=== PATIENT | female | born 1990 | race Asian ===

== ENCOUNTER → 2021-11-24 | Outpatient (CLI) | payer OTHER ==
--- NOTE | 2021-11-24 15:43 | Diagnostic Imaging Report ---
INDICATION: anatomy survey. TECHNIQUE: Multiple Real-time grayscale images were obtained over the gravid uterus. COMPARISON: None FINDINGS: There is a single live intrauterine in the cephalic position. The cervix measures 4.5 cm. The placenta is posterior in location, and there is no evidence of previa or placental abruption. heart rate was not recorded in the examination. The amount of amniotic fluid appears visually appropriate. anatomy survey was performed and the following structures are visualized and normal: spine, cerebral ventricles, profile, bilateral upper and lower extremities, umbilical cord insertion, stomach, kidneys, four-chamber heart, right ventricular outflow tract, left ventricular outflow tract, diaphragm, aorta, and cerebellum/cisterna magna. Due to advanced gestational age, the maternal adnexa are suboptimally evaluated. Biometrical measurements are as follows: Biparietal 4.68 cm, age 20 weeks 2 days. Head circumference 17.82 cm, age 20 weeks 2 days. Abdominal circumference 14.19 cm, age 19 weeks 4 days. Femur length 3.19 cm, age 20 weeks 0 days. Sonographic estimate age: 20 weeks 1 days. Sonographic estimated date of delivery: 04/12/22. Estimated Weight: 313 gm (+/- 46 gm). LMP percentile: 27%. number: 1 of 1. IMPRESSION: 1. Single live intrauterine with normal anatomy survey. 2. heart rate was not assessed during this examination. Dictated by: Dictated on workstation # [id number]
== END ==
LOC: RAD 13:00
PROVIDERS: ATTEND Obstetrics & Gynecology
DX: Z34.92 Encounter for supervision of normal pregnancy, unspecified, second trimester (principal); Z3A.20 20 weeks gestation of pregnancy
CPT/HCPCS: 76805

== ENCOUNTER 2022-03-24 05:28 | Outpatient (CLI) | payer OTHER ==
[~2022-03-24] VITALS: Ht 160 cm; Wt 74.5 kg
[2022-03-24] MEDS ORDERED: PREN1TAB19 PO (14:05)
[2022-03-31] MEDS ORDERED: ACHD5005 PO (07:29)
[2022-03-31] MEDS ORDERED: DOCU100C37 PO (07:29)
[2022-03-31] MEDS ORDERED: IBUP-844 PO (07:29)
== END 2022-03-24 14:01 | disposition home or self-care (01) ==
LOC: PREOP 05:28
PROVIDERS: ATTEND Obstetrics & Gynecology
DX: Z01.818 Encounter for other preprocedural examination (principal)

== ENCOUNTER 2022-03-31 05:49 | Inpatient (IN) | payer OTHER ==
[~2022-03-31] VITALS: Ht 159 cm; Wt 74.4 kg
[2022-03-31] VITALS (9 sets, daily range): BP systolic 99–125; BP diastolic 56–94
[~2022-03-31 05:49] MED LIST: PREN1TAB19 PO
[2022-03-31] MEDS: LACTATED RINGERS 1,000 ML IV PRN ×2 (06:45→07:23)
[2022-03-31] MEDS ORDERED: ceFAZolin 2 GM IV Premixed 50 ML IV ONE (06:45)
[2022-03-31] MEDS ORDERED: FAMOTIDINE 20MG/2ML IV (PEPCID) IV ONE (07:00)
[2022-03-31] MEDS ORDERED: CITRIC ACID/SOB CIT (BICITRA) 30 ML UDC PO ONE (07:00)
[2022-03-31] MEDS ORDERED: LACTATED RINGERS 1,000 ML IV PRN (07:00)
[2022-03-31] MEDS ORDERED: OXYTOCIN PRE-MIX DRIP 1,000 ML IV ONE (07:00)
[2022-03-31] MEDS ORDERED: ROPIVACAINE 5MG/ML 30ML VIAL ONE (07:00)
[2022-03-31] MEDS ORDERED: fentaNYL INJ 100 MCG/2 ML AMP ONE (07:00)
[2022-03-31] MEDS ORDERED: METOCLOPRAMIDE INJ 10 MG/2 ML (REGLAN) IV ONE (07:00)
[2022-03-31 07:08] LABS: BASOPHILS % (AUTO) 0 % (0-10); EOSINOPHILS # (AUTO) 0.1 10^3/uL (0.0-0.3); EOSINOPHILS % (AUTO) 1 % (0-10); HEMATOCRIT 33 % (35-52); HEMOGLOBIN 11.2 g/dL (11.5-16.0); LYMPHOCYTES # (AUTO) 1.5 10^3/uL (1.0-4.0); LYMPHOCYTES % (AUTO) 23 % (12-44); MEAN CORPUSCULAR HEMOGLOBIN 29 pg (25-34); MEAN CORPUSCULAR HGB CONC 34 g/dL (32-36); MEAN CORPUSCULAR VOLUME 85 fL (80-99); MEAN PLATELET VOLUME 11.3 fL (9.0-12.2); MONOCYTES # (AUTO) 0.6 10^3/uL (0.0-1.0); MONOCYTES % (AUTO) 9 % (0-12); NEUTROPHILS # (AUTO) 4.5 10^3/uL (1.8-7.8); NEUTROPHILS % (AUTO) 66 % (42-75); PLATELET COUNT 224 10^3/uL (130-400); WHITE BLOOD COUNT 6.8 10^3/uL (4.3-11.0)
--- NOTE | 2022-03-31 07:25 | History & Physical-OB ---
OB - Chief Complaint & HPI Date/Time Date of Admission: Date of Admission: Mar 31, 2022 at 05:49 Date seen by a Provider: Mar 31, 2022 Time Seen by a Provider: 07:00 Chief Complaint/History OB-Reason for Admission/Chief: Section Hx : 4 Hx Para: 1 Expected Date of Delivery: Apr 12, 2022 Gestational Age in Weeks: 38 Gestational Age in Days: 2 Indication for : desires repeat Admission Nurse Assessment Rev: Yes History of Labs B pos Antibody neg RI RPR NR HBsAg NR HIV NR GC neg GBS neg Allergies and Home Medications Allergies Coded Allergies: egg (Verified Allergy, Unknown, itching, 03/24/22) Patient Home Medication List Home Medication List Reviewed: Yes Vit/Iron Fumarate/FA ( Vitamins Tablet) 28 Mg Iron-800 Mcg Tablet, 1 EACH PO UD, (Reported) Entered as Reported by: TYLER WAKEFIELD on 03/24/22 1405 OB - History Hx of Present Care: Yes Ultrasounds: Normal mid trimester US Obstetrical Complications: Gestational Diabetes Medical Complications: None Other Concerns: Previous effected by child with hydrocephalus Patient Past Medical History n/a Social History/Family History 2nd Hand Smoke Exposure: No Immunizations First/Initial COVID19 Vaccine: 2020 Second COVID19 Vaccination: 2020 OB - Admission Exam Physical Exam HEENT: NCAT Heart: Rhythm Normal Lungs: Clear Abdomen: Gravid Extremities: Normal Reflexes: Normal Heart Rate: 130's Accelerations: Accelerations Present Decelerations: No Decelerations Short Term Variability: Present Ecological Risk Assessor Variability: Average (6-25) Contractions on Admission: >10 Minutes Apart Intensity: Mild Labs Laboratory Tests Test 03/31/22 06:30 Range/Units White Blood Count 6.8 4.3-11.0 10^3/uL Red Blood Count 3.89 3.80-5.11 10^6/uL Hemoglobin 11.2 L 11.5-16.0 g/dL Hematocrit 33 L 35-52 % Mean Corpuscular Volume 85 80-99 fL Mean Corpuscular Hemoglobin 29 25-34 pg Mean Corpuscular Hemoglobin Concent 34 32-36 g/dL Red Cell Distribution Width 16.4 H 10.0-14.5 % Platelet Count 224 130-400 10^3/uL Mean Platelet Volume 11.3 9.0-12.2 fL Immature Granulocyte % (Auto) 1 % Neutrophils (%) (Auto) 66 42-75 % Lymphocytes (%) (Auto) 23 12-44 % Monocytes (%) (Auto) 9 0-12 % Eosinophils (%) (Auto) 1 0-10 % Basophils (%) (Auto) 0 0-10 % Neutrophils # (Auto) 4.5 1.8-7.8 10^3/uL Lymphocytes # (Auto) 1.5 1.0-4.0 10^3/uL Monocytes # (Auto) 0.6 0.0-1.0 10^3/uL Eosinophils # (Auto) 0.1 0.0-0.3 10^3/uL Basophils # (Auto) 0.0 0.0-0.1 10^3/uL Immature Granulocyte # (Auto) 0.0 0.0-0.1 10^3/uL Glucose Level 76 70-105 MG/DL OB - Assessment/Plan/Diagnosis Assessment Assessment: section Admission Dx 31 yo @ 38.2 weeks Gestational DM Previous Previous effected by hydrocephalus GBS neg Admission Status: Inpatient Order (span 2 midnights) Reason for Inpatient Admission: Repeat at term Plan Plan: Section JAYLAN ALVAREZ DO Mar 31, 2022 07:25
--- NOTE | 2022-03-31 07:28 | Discharge Inst-Women's Service ---
Discharge Inst-Women's Serv Depart Medication/Instructions New, Converted or Re-Newed RX: Transmitted to Pharmacy Final Diagnosis POD 2 RLTCS Problems Reviewed?: Yes Consults/Follow Up Additional Follow Up: Yes Orders/Referrals Dr. Fofana/Grazyna in 7-10 days and in 6 weeks Activity Activity: Activity as Tolerated Driving Instructions: No Driving for 1 Week NO SMOKING: NO SMOKING Nothing Inside Vagina: No Douching, No Fifty-Six, No Tampons Diet Discharge Diet: No Restrictions Symptoms to Report to : Bleeding Excessive, Pain Increased, Fever Over 101 Degrees F, Vaginal Bleeding Increase, Questions/Concerns For Any Problems or Questions: Contact Your Physician Skin/Wound Care Infection Signs and Symptoms: Increased Redness, Foul Odor of Wound, Increased Drainage, Skin Itchy or Has a Rash, Increased Swelling, Temperature Above 101 F Operative Area Clean and Dry: Keep Incision Clean/Dry Stitches/Monica/Dermabond: Dermabond, Care of Stitches Bathing Instructions: JAYLAN Dyson DO Mar 31, 2022 07:28
[2022-03-31] MEDS ORDERED: IBUP-844 PO (07:29)
[2022-03-31] MEDS ORDERED: ACHD5005 PO (07:29)
[2022-03-31] MEDS ORDERED: DOCU100C37 PO (07:29)
[2022-03-31] MEDS ORDERED: MEASLES,MUMPS,RUBELLA 1 EA INJ SC SCH (07:30)
[2022-03-31] MEDS ORDERED: NALOXONE 0.4 MG/ML 1 ML (NARCAN) VIAL IV PRN (07:30)
[2022-03-31] MEDS ORDERED: ONDANSETRON 4 MG/2 ML (SDV) Z0FRAN IVP PRN ×2 (07:30)
[2022-03-31] MEDS ORDERED: HYDROmorphone 2 MG/ML VIAL (DILAUDID) IV ONE (07:30)
[2022-03-31] MEDS ORDERED: TETANUS,DIPTH,PERTUSS P/F (BOOSTRIX) 0.5 ML VIAL IM SCH (07:30)
[2022-03-31] MEDS ORDERED: PHENYLEPHRINE 100 MCG/ML 10 ML (ANESTHESIA) SYR ONE (07:32)
[2022-03-31] MEDS: OXYTOCIN PRE-MIX DRIP 500 ML IV SCH ×2 (08:25→10:49)
[2022-03-31] MEDS: KETOROLAC 30 MG/ML VIAL IV SCH ×3 (10:09→21:18)
[2022-03-31] MEDS: DOCUSATE SODIUM 100 MG (COLACE) CAP PO SCH ×2 (10:10→21:17)
--- NOTE | 2022-03-31 13:05 | OPERATIVE REPORT ---
DATE OF SERVICE: PREOPERATIVE DIAGNOSES: 1. A 31-year-old G4, P1 at 38 weeks and 2 days gestation. 2. Previous section. 3. Gestational diabetes. POSTOPERATIVE DIAGNOSES: 1. A 31-year-old G4, P1 at 38 weeks and 2 days gestation. 2. Previous section. 3. Gestational diabetes. PROCEDURE: Repeat low transverse section. SURGEON: Alberto Alvarez DO ANESTHESIA: Spinal. ESTIMATED BLOOD LOSS: 700 mL. URINE OUTPUT: 200 mL clear at the end of procedure. FLUIDS: 1000 mL lactated Ringer's solution. FINDINGS: A live female infant weighing 6 pounds 3 ounces, Apgars of 8 and 9. Grossly normal appearing uterus, bilateral fallopian tubes and ovaries. SPECIMEN SENT: Placenta. INDICATIONS FOR PROCEDURE: This 31-year-old female is a patient who sought care in my office. Her previous was complicated by significant hydrocephalus with permanent disability of that child. She underwent for that and was opting to proceed with repeat with this . This had only been complicated by gestational diabetes, which was diagnosed at the start of the third trimester. Otherwise, it been uncomplicated. Ultrasound had been unremarkable. She did well with controlling her diabetes with diet alone and made to 38 weeks where we scheduled her for repeat delivery. Risks of the procedure had been discussed with the patient and her in detail in the office. After all their questions were answered, consent was obtained, the patient was taken to the operating room. OPERATIVE REPORT IN DETAIL: Once in the operating room, anesthesia was found to be adequate. She was placed in supine position with leftward tilt, prepped and draped in normal sterile fashion. Timeout was performed and anesthesia was tested. I then make a Pfannenstiel skin incision through the previously existing scar using knife and carried down to underlying fascia using Bovie cautery. The fascial incision extended laterally using Bovie cautery. Superior aspect of fascial incision was then grasped with Stephen clamps, tented up and dissected off the underlying rectus muscles. The inferior aspect of the fascial incision was then grasped with Stephen clamps, tented up and dissected off the underlying rectus muscles. Rectus muscles were dissected down the midline using sharp dissection, which exposed the peritoneum, which I entered bluntly and extended using blunt traction. Andrei ring retractor was placed in the peritoneal incision, which offers excellent lateral sidewall retraction. I identified the lower uterine segment, which was found to be thinned out. I make a low transverse incision to the vesicouterine peritoneum and bluntly dissected off the lower uterine segment, creating a bladder flap. I then proceeded with myotomy until membranes were visualized, at which point I extended the uterine incision laterally and superiorly using bandage scissors. Amniotomy was performed in the process of doing this, clear fluid was noted. was found in vertex presentation. With gentle fundal pressure, the infant's head was elevated and delivered through the incision where the nares and oropharynx were bulb suctioned. Anterior and posterior shoulders were delivered after nuchal cord was reduced x1. The remainder of the infant was then brought to the operative field where cord was duly clamped and cut and infant was handed off to waiting nurses in attendance. Cord blood was collected, 3-vessel cord with intact placenta was delivered spontaneously thereafter. IV Pitocin was initiated to facilitate uterine contraction. Uterine fundus confirmed by manual massage. The uterus was then exteriorized and cleared of all endometrial clots and debris. I then proceeded with closing the uterine incision using 0 Vicryl suture in running locked fashion. Second layer of imbricating 0 Monocryl was placed. Excellent hemostasis was noted after doing this. I then placed the uterus back in the pelvis and copiously irrigated the pelvis using normal saline. Once again, there was no active bleeding noted from any of my dissection planes. I placed Interceed antiadhesive over my low transverse incision. I removed the Andrei ring retractor and then proceeded with closing the peritoneum using 3-0 Vicryl suture in running fashion. The rectus muscle reapproximated using 3-0 Vicryl suture in interrupted fashion. The fascia was reapproximated using 0 Vicryl suture in running fashion and the skin reapproximated using 4-0 Monocryl in a running subcuticular. Dermabond was applied to incision and sterile dressings with adhesive white tape. The patient tolerated the procedure well and sent to recovery area in stable condition. Lap and sponge counts were correct at the end of the procedure. Instrument counts correct as well. Two grams of Ancef given preoperatively for infection prophylaxis. Job ID: [id number] DocumentID: [id number] Dictated Date: 03/31/2022 08:11:26 Skull Splitter Date: 03/31/2022 13:03:44 Dictated By: ALBERTO ALVAREZ DO
[2022-03-31] MEDS: HYDROcodone/APAP 5 MG/325 MG (LORTAB) TAB PO PRN (14:19)
[2022-03-31] MEDS: CATHETER FLUSH 10 ML SYR IV SCH (16:01)
[2022-04-01] VITALS: BP 113/59
[2022-04-01 05:00] VITALS: BP 116/55
[2022-04-01] MEDS: KETOROLAC 30 MG/ML VIAL IV SCH (05:09)
[2022-04-01] MEDS: CATHETER FLUSH 10 ML SYR IV SCH ×2 (05:09→20:08)
[2022-04-01 05:52] LABS: BASOPHILS % (AUTO) 1 % (0-10); EOSINOPHILS # (AUTO) 0.1 10^3/uL (0.0-0.3); EOSINOPHILS % (AUTO) 1 % (0-10); HEMATOCRIT 30 % (35-52); HEMOGLOBIN 10.1 g/dL (11.5-16.0); LYMPHOCYTES # (AUTO) 1.1 10^3/uL (1.0-4.0); LYMPHOCYTES % (AUTO) 15 % (12-44); MEAN CORPUSCULAR HEMOGLOBIN 29 pg (25-34); MEAN CORPUSCULAR HGB CONC 34 g/dL (32-36); MEAN CORPUSCULAR VOLUME 87 fL (80-99); MEAN PLATELET VOLUME 10.7 fL (9.0-12.2); MONOCYTES # (AUTO) 0.7 10^3/uL (0.0-1.0); MONOCYTES % (AUTO) 9 % (0-12); NEUTROPHILS # (AUTO) 5.3 10^3/uL (1.8-7.8); NEUTROPHILS % (AUTO) 74 % (42-75); PLATELET COUNT 185 10^3/uL (130-400); WHITE BLOOD COUNT 7.2 10^3/uL (4.3-11.0)
--- NOTE | 2022-04-01 08:46 | Postpartum Progress Note ---
Note Note Day # 1 Subjective: Patient is without complaints. Ambulating, voiding. Tolerating a regular diet without nausea or vomiting. Normal lochia. Pain is well controlled with oral pain medications. Objective: Physical Exam: General - Alert and oriented, no apparent distress Abdomen - Soft, appropriately tender to palpation, non-distended, fundus firm at umbilicus Extremities - no edema, negative Sherlyn's bilaterally Incision- c/d/i Assessment: POD 1 RLTCS Acute blood loss anemia Plan: Routine care. Encourage breast feeding. Encourage ambulation. Ferrous sulfate supplementation. Plan for discharge tomorrow Vitals - Labs Vital Signs - I&O Vital Signs Date Time Temp Pulse Resp B/P (MAP) Pulse Ox O2 Delivery O2 Flow Rate FiO2 04/01/22 05:00 36.2 70 18 116/55 (75) 96 Room Air 04/01/22 00:00 36.2 71 18 113/59 (77) 98 Room Air 03/31/22 20:00 36.6 69 18 99/60 (73) 99 Room Air 03/31/22 16:02 36.3 72 18 103/61 (75) 96 Room Air 03/31/22 12:15 36.1 73 18 115/59 (77) 98 Room Air 03/31/22 10:00 36.5 78 16 112/69 (83) 100 Room Air 03/31/22 09:00 36.1 16 105/81 (89) 98 Room Air 03/31/22 09:00 Room Air 03/31/22 08:50 Room Air 03/31/22 08:50 36.1 16 121/94 (103) 97 Room Air I & O 04/01/22 06:59 Intake Total 4330 ml Output Total 3050 ml Balance 1280 ml Labs Laboratory Tests 04/01/22 05:45: White Blood Count 7.2, Red Blood Count 3.47L, Hemoglobin 10.1L, Hematocrit 30L, Mean Corpuscular Volume 87, Mean Corpuscular Hemoglobin 29, Mean Corpuscular Hemoglobin Concent 34, Red Cell Distribution Width 16.5H, Platelet Count 185, Mean Platelet Volume 10.7, Immature Granulocyte % (Auto) 0, Neutrophils (%) (Auto) 74, Lymphocytes (%) (Auto) 15, Monocytes (%) (Auto) 9, Eosinophils (%) (Auto) 1, Basophils (%) (Auto) 1, Neutrophils # (Auto) 5.3, Lymphocytes # (Auto) 1.1, Monocytes # (Auto) 0.7, Eosinophils # (Auto) 0.1, Basophils # (Auto) 0.0, Immature Granulocyte # (Auto) 0.0 Microbiology 03/31/22 MRSA Screen - Final, Complete MRSA not isolated JAYLAN ALVAREZ DO Apr 01, 2022 08:46
--- NOTE | 2022-04-01 10:06 | Anesthesia-Regional Post-Op ---
Regional Patient Condition Mental Status: Alert, Oriented x3 Circulation: Same as Pre-Op Headache: Absent Sensation: Full Recovery Motor Block: Absent Post Op Complications Complications None Follow Up Care/Instructions Patient Instructions None needed. Anesthesia/Patient Condition Patient is doing well, no complaints, stable vital signs, no apparent adverse anesthesia problems. No complications reported per nursing. ISAMAR DEL ROSARIO CRNA Apr 01, 2022 10:06
[2022-04-01 10:51] VITALS: BP 116/57
[2022-04-01] MEDS: DOCUSATE SODIUM 100 MG (COLACE) CAP PO SCH ×2 (10:53→21:03)
[2022-04-01] MEDS: IBUPROFEN 600 MG (MOTRIN) TAB PO SCH ×3 (10:54→23:14)
[2022-04-01 17:00] VITALS: BP 111/60
[2022-04-01] MEDS: HYDROcodone/APAP 5 MG/325 MG (LORTAB) TAB PO PRN (17:05)
[2022-04-01 19:59] VITALS: BP 111/53
[2022-04-02 01:45] VITALS: BP 114/63
[2022-04-02] MEDS: IBUPROFEN 600 MG (MOTRIN) TAB PO SCH ×2 (04:57→12:13)
[2022-04-02] MEDS: CATHETER FLUSH 10 ML SYR IV SCH ×3 (05:39→14:00)
--- NOTE | 2022-04-02 08:41 | Postpartum Progress Note ---
Note Note Day # 2 Subjective: Patient is without complaints. Ambulating, voiding. Tolerating a regular diet without nausea or vomiting. Normal lochia. Pain is well controlled with oral pain medications. Objective: Physical Exam: General - Alert and oriented, no apparent distress Abdomen - Soft, appropriately tender to palpation, non-distended, fundus firm at umbilicus Extremities - no edema, negative Sherlyn's bilaterally Incision- c/d/i Assessment: POD 2 RLTCS Acute blood loss anemia Plan: Routine care. Encourage breast feeding. Encourage ambulation. Ferrous sulfate supplementation. Plan for discharge today Vitals - Labs Vital Signs - I&O Vital Signs Date Time Temp Pulse Resp B/P (MAP) Pulse Ox O2 Delivery O2 Flow Rate FiO2 04/02/22 01:45 36.4 72 16 114/63 (80) 95 Room Air 04/01/22 19:59 36.2 77 18 111/53 (72) 97 Room Air 04/01/22 17:00 36.4 78 18 111/60 (77) 98 Room Air 04/01/22 10:51 36.2 78 18 116/57 (76) 97 Room Air I & O 04/02/22 07:00 Intake Total 1200 ml Output Total 2800 ml Balance -1600 ml Labs Laboratory Tests 04/01/22 20:10: Glucometer 102 Microbiology 03/31/22 MRSA Screen - Final, Complete MRSA not isolated JAYLAN ALVAREZ DO Apr 02, 2022 08:41
[2022-04-02 12:10] VITALS: BP 114/58
[2022-04-02] MEDS: HYDROcodone/APAP 5 MG/325 MG (LORTAB) TAB PO PRN (12:13)
[2022-04-02] MEDS: DOCUSATE SODIUM 100 MG (COLACE) CAP PO SCH (12:13)
== END 2022-04-02 14:00 | disposition home or self-care (01) | DRG 787 ==
LOC: LDRP 05:49
PROVIDERS: ADMIT Obstetrics & Gynecology; ATTEND Obstetrics & Gynecology
PROC: 10D00Z1 Extraction of Products of Conception, Low, Open Approach (ICD-10-PCS; principal; 2022-03-31 07:23)
DX: O34.211 Maternal care for low transverse scar from previous cesarean delivery (principal); D62 Acute posthemorrhagic anemia; O24.420 Gestational diabetes mellitus in childbirth, diet controlled; Z3A.38 38 weeks gestation of pregnancy; Z37.0 Single live birth; O90.81 Anemia of the puerperium; Z23 Encounter for immunization
CPT/HCPCS: 36415; 82947; 85025; 86850; 86900; 86901; 87081; 90715